=== PATIENT | female | born 1965 | race Caucasian/White ===

== ENCOUNTER 2025-01-12 12:43 | Outpatient (CLI) | payer OTHER, SELFPAY ==
--- NOTE | ~2025-01-12 | MMUS_ITS ---
PROCEDURE: MM DIAGNOSTIC ESTER LT W TYESHA AND US BREAST LT LIMITED. INDICATION: 57-year old female; with palpable lump in her left axilla x2 months. History of 100 pound weight loss in the past year. COMPARISON: 05/23/2024 through 01/11/2022 TECHNIQUE: Digital breast tomosynthesis CC and MLO views of LEFT breast were obtained with computer-a ided detection to assist in interpretation of the study. FINDINGS: There are scattered areas of fibroglandular density. There are no suspicious masses, calcifications, architectural distortion or any other abnormality in LEFT breast. LEFT BREAST ULTRASOUND FINDINGS: Targeted sonographic evaluation of the palpable area in the left axilla was completed. There is no so nographic abnormality that correlates to the area of palpable lump identified by the patient. . Benig n appearing lymph nodes with predominantly fatty emerson are seen. IMPRESSION: 1. NO MAMMOGRAPHIC OR SONOGRAPHIC ABNORMALITY CORRELATE TO THE PALPABLE LUMP IN THE LEFT AXILLA. FURT HER EVALUATION OF PATIENT'S PALPABLE LUMP SHOULD BE BASED ON CLINICAL IMPRESSION. FOLLOW-UP CLINICALLY WARRANTED. 2. NO MAMMOGRAPHIC EVIDENCE OF MALIGNANCY IN LEFT BREAST. BI-RADS 1, NEGATIVE Reviewed, dictated and finalized at location B. IMPRESSION: 1. NO MAMMOGRAPHIC OR SONOGRAPHIC ABNORMALITY CORRELATE TO THE PALPABLE LUMP IN THE LEFT AXILLA. FURTHER EVALUATION OF PATIENT'S PALPABLE LUMP SHOULD BE BASED ON CLINICAL IMPRESSION. FOLLOW-UP CLINICALLY WARRANTED. 2. NO MAMMOGRAPHIC EVIDENCE OF MALIGNANCY IN LEFT BREAST. BI-RADS 1, NEGATIVE
--- OUTSIDE RECORDS SUMMARY | 2025-01-12 12:47 | XMS_ITS | Continuity of Care Document ---
Author Organization [facility] Address [address] [place] [address] Phone Care Team Providers Care Order Selector Name Role Phone Ilya Jiang MD Unavailable Unavailable Procedures Procedure Date New (Level 4) OFFICE/OUTPATIENT VISIT Advance Directives Directive Yes / No Effective Date File Name No Information Encounters Encounter Description Practice Location Reason(s) For Visit Diagnoses Date Provider Providers Copied on Encounter New (Level 4) OFFICE/OUTPA TIENT VISIT [facility], [address], [place], [place], [id number], [place] tel:[phone] [facility] [place]chief complaint) Body mass index (BMI) 45.0-49.9, adultUrticariaOt her adverse food reaction, initial encounterChronic rhinitis 2 Deidre Caraballo. [address] [facility] [address] [facility], [place], [address], [place]. tel:[phone] Referring Provider: Fabiola Altman, [address], [place], [address]. tel:[phone] Family History Family Member Type Diagnosis Age At Onset No Information Payers Payer name Insurance type Covered green party ID Authoriza tion(s) [facility] Choice Plus CI [id number] Social History Type Description Quantity Date Captured Comments Alcohol Use Details Unknown Caffeine Use Details Unknown Tobacco Use Status No Information Smoking Status No Information Christian-[birth year]20[birth year] Sex Female Vital Signs Date / Time: Height Weight BMI Pulse Rate Blood Pressure Temperature Respiratory Rate Body Surface Area Head Circumference Head Circ. Percentile Wt./Eber. Percentile BMI percentile Pulse Ox Inhaled Ox 2:58 PM 65.50 in 128.367 kg (283.00 lbs) 46.3 8 kg/m eter (2) 78 /min 138/74 mm[Hg] 97.70 F 2.44 meter(2) 98 % Chief Complaint And Reason For Visit From encounter dated '02/08/2022 15:00'. hives (chief complaint). Description: Stephy developed hives on 01/17/22. They were all over her body, except between the knees and ankles. She had lesions on her feet, face, body, and arms. The hives persisted over about 2 days. She started prednisone on 01/18/22. The rash was mostly resolved byabout 01/22/22. She reports generalized puffiness without specific angioedema of the fingers and lips. She denies dyspnea, vomiting, or abdominal pain with the episode.She reports eating Maltese food for dinner the night the episode started. She reports ankle pruritus immediately after eating the meal. She ate crab rangoon (imitation crab), beef, mushrooms, broccoli with rice and a spring roll. During the episode, she was on loratadine (claritin) 10 mg daily, montelukast (singulair) 10 mg daily.She completed a course of oral steroids after 5 or 6 days. She did not otherwise treat the rash.Individual lesions lasted > 24 hours, but resolution did not result in ecchymosis or hyperpigmen tation except as a result of repetitive scratching. No fevers, chills, or night sweats. She does not routinely use NSAIDs. Pressure and vibration have not been triggers for hives. She has not noticedtemperature (hot or cold) as triggers for her hives.She has an EpiPen that was prescribed because of this event.She has GERD on omeprazole 20 mg BID. This does control her symptoms.RhinitisThe patient has a history of perennial rhinitis without seasonal worsening. The symptoms include rhinorrhea (ant/post), and sneezing w/ ocular pruritus and tearing. Currently, the patient is on loratadine (claritin) 10 mg daily (last this AM) and montelukast (singulair) 10 mg daily, which does provide adequate relief. She does not like the feeling of using a nasal spray. The patient does not have a history of frequent sinus infections.Adverse Food ReactionLobster, Crab - She reports pruritus after eating these foods. Almost immediately after eating one of the above, her body feels warm descending down her body associated with pruritus. She does not recall ever getting hives or swelling. No vomiting, li ghtheadedness, dizziness, or dyspnea after eating these foods. No ED visits because of a reaction.She tolerates shrimp. She does not routinely eat molluscs.She is currently undergoing cardiac evaluation, with a TTE and stress test scheduled soon. She is on metoprolol. 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 They were all over her body, except between the knees and ankles. She had lesions on her feet, face, body, and arms. The hives persisted over about 2 days. She started prednisone on 01/18/22. The rash was mostly resolved by about 01/22/22. She reports generalized puffiness without specific angioedema of the fingers and lips. She denies dyspnea, vomiting, or abdominal pain with the episode.She reports eating Maltese food for dinner the night the episode started. She reports ankle pruritus immediately after eating the meal. She ate crab rangoon (imitation crab), beef, mushrooms, broccoli with rice and a spring roll. During the episode, she was on loratadine (claritin) 10 mg daily, montelukast (singulair) 10 mg daily. She completed a course of oral steroids after 5 or 6 days. She did not otherwise treat the rash.Individual lesions lasted > 24 hours, but resolution did not result in ecchymosis or hyperpigmentation except as a result of repetitive scratching. No fevers, chills, or night sweats. She does not routinely use NSAIDs. Pressure and vibration have not been triggers for hives. She has not noticed temperature (hot or cold) as triggers for her hives.She has an EpiPen that was prescribed because of this event.She has GERD on omeprazole 20 mg BID. This does control her symptoms.RhinitisThe patient has a history of perennial rhinitis without seasonal worsening. The symptoms include rhinorrhea (ant/post), and sneezing w/ ocular pruritus and tearing. Currently, the patient is on loratadine (claritin) 10 mg daily (last this AM) and montelukast (singulair) 10 mg daily, which does provide adequate relief. She does not like the feeling of using a nasal spray. The patient does not have a history of frequent sinus infections.Adverse Food ReactionLobster, Crab - She reports pruritus after eating these foods. Almost immediately after eating one of the above, her body feels warm descending down her body associated with pruritus. She does not recall ever getting hives or swelling. No vomiting, lightheadedness, dizziness, or dyspnea after eating these foods. No ED visits because of a reaction.She tolerates shrimp. She does not routinely eat molluscs.She is currently undergoing cardiac evaluation, with a TTE and stress test scheduled soon. She is on metoprolol. 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 Environmental HistoryLives in a house w/ central air/forced heat, w/o evidence of mold/water damageFlooring in Bedroom: carpetPets: dog x 2DataI reviewed outside records available in the EMR Functional Status Date Functional Assessmen t No Information Instructions Date Instruction Additional Infor mation Giving encouragement to exercise Related to Body mass index [BMI] 45.0-49.9, adult Assessments Type Assessment Date assessment Body mass index (BMI) 45.0-49.9, adult assessment Urticaria assessment Other adverse food reaction, ini tial encounter assessment Chronic rhinitis Patient Care Teams Name Effective Dates (start - stop) Status Members No Information
--- OUTSIDE RECORDS SUMMARY | 2025-01-12 12:48 | XMS_ITS | Referral Summary ---
Author Organization [facility] Address [address] [place] [address] Care Team Providers Care Delivery Merchandiser Name Role Phone Fabiola Dickson MD Primary Care Provider [phone] Encounters Date Type Department Care Team Description 01/05/[address] [place] [address] Fabiola Dickson MD 12/23/2024 3:00 PM CDT Office Visit [address] [place] [address] Yanni Hubbard, [place] Mass of left axilla (Primary Dx) from Last 3 Months Allergies Active Allergy Reactions Criticality Noted Date Comments Erythromycin Itching,Rash,Hives Medium 05/12/2014 Rash Nifedipine Headache,Other (See comments) Low 05/29/2020 Says her head felt like it would explode Propoxyphene Stomach upset,Hives,Itching Medium 05/12/2014 Stomach/GI Upset Propoxyphene-Acetaminop hen Itching Low Medications aspirin 81 mg chewable tablet Take 1 tablet (81 mg total) by mouth daily Active loratadine 10 mg capsule Take 1 tablet by mouth daily Active TURMERIC ORAL Take by mouth Ac tive cinnamon bark 500 mg capsule Take 1 capsule (500 mg total) by mouth daily Active omeprazole (PriLOSEC) 20 mg capsuleIndications:Yaya roesophageal reflux disease without esophagitis Take 1 capsule (20 mg total) by mouth 2 (two) times a day 180 capsule 1 022 Active Additional Information Patient not taking.Reported on 07/30/2024 montelukast (SINGULAIR) 10 mg tabletIndications:Cough Take 1 tablet (10 mg total) by mouth nightly 30 tablet 5 023 Active simvastatin (ZOCOR) 20 mg tabletIndications:Pure hypercholesterolemia TAKE 1 TABLET(20 MG) BY MOUTH DAILY 90 tablet 1 024 Active metoprolol XL (TOPROL-XL) 50 mg extended release tabletIndications:Uncon trolled hypertension Take 1 tablet (50 mg total) by mouth 2 (two) times a day 180 tablet 024 Active hydroCHLOROthiazide (HYDRODIURIL) 25 mg tablet TAKE 1 TABLET(25 MG) BY MOUTH DAILY 100 tablet 1 024 Active Mounjaro 7.5 mg/0.5 mL pen injectorIndications:Typ e 2 diabetes mellitus without complication, without long-term current use of insulin (HCC) ADMINISTER 7.5 MG UNDER THE SKIN EVERY 7 DAYS 2 mL 3 024 Active EPINEPHrine (Auvi-Q) 0.3 mg/0.3 mL auto-injection syringeIndications:Anap hylaxis Inject into the muscle as directed. Call 911 after use. 2 each 1 025 Active valsartan (DIOVAN) 80 mg tabletIndications:Uncon trolled hypertension TAKE 1 TABLET(80 MG) BY MOUTH DAILY 100 tablet 025 Active ergocalciferol (VITAMIN D) 50,000 unit capsuleIndications:Seema min D deficiency Take 1 capsule (50,000 Units total) by mouth once a week 4 capsule 1 025 Active ergocalciferol (VITAMIN D) 50,000 unit capsuleIndications:Seema min D deficiency TAKE 1 CAPSULE BY MOUTH 1 TIME A WEEK 4 capsule 5 024 2024 Disconti melody(Trisho rder) Active Problems Problem Noted Date Diagnosed Date Hypertension associated with diabetes 07/30/2024 Assessment & Plan (08/10/2024 3:12 AM DIVIDEND CLERK): Chronic Stable Cont meds Goal: SBP<140, DBP<90 Type 2 diabetes mellitus with hyperlipidemia Left foot pain 01/17/2023 Assessment & Plan (01/25/2023 7:05 AM CDT): New Refer to podiatry Order mobic Morbid obesity with BMI of 45.0-49.9, adult 06/0 03/2023 Assessment & Plan (01/25/2023 7:04 AM CDT): BMI Follow-up includes: nutrition counseling and education provided. BMI 45.0-49.9, adult 06/14/2022 Assessment & Plan (06/14/2022 9:19 AM CDT): BMI Follow-up includes: nutrition counseling and exercise counseling Change ozempic to mounjara. Need for vaccination 06/14/2022 Closed avulsion fracture of metatarsal bone of r ight foot 06/14/2022 Assessment & Plan (06/22/2022 4:41 AM DIVIDEND CLERK): Cleared for surgery Metabolic syndrome 06/14/2022 PSVT (paroxysmal supraventricular tachycardia) 0 03/22/2022 Assessment & Plan (09/20/2022 4:39 PM DIVIDEND CLERK): No significant palpitations. Continue the beta-isidoro. Advised her to contact me if he has any palpitations. As she is stable I will see her in 1 year. 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 television agent Order epipen because of h/o multiple food allergies Chest pressure 01/18/2022 Palpitations 01/18/2022 Abnormal EKG 01/18/2022 Gastroesophageal reflux disease without esophagi tis 11/23/2021 Assessment & Plan (12/12/2021 7:47 PM CDT): Stable Cont omeprazole Precordial pain 11/23/2021 Assessment & Plan (12/12/2021 7:45 PM CDT): New Refer to cardiology for cardiac testing Vitamin D deficiency 07/01/2021 Assessment & Plan (08/13/2023 7:50 AM DIVIDEND CLERK): Stable Cont vitamin d supplement Assessment & Plan (06/14/2022 9:20 AM CDT): Stable Cont vitamin d supplement Assessment & Plan (03/30/2022 12:11 PM CDT): Stable Cont vitamin d supplement Assessment & Plan (12/12/2021 7:47 PM CDT): Stable Cont vitamin d supplement Assessment & Plan (07/10/2021 9:13 AM DIVIDEND CLERK): New Order vitamin d high dose supplement Encounter for screening colonoscopy 11/30/2020 Uncontrolled hypertension 11/19/2020 Assessment & Plan (12/12/2021 7:46 PM CDT): New Start diovan Cont hctz, toprol, Goal: SBP<140, DBP<90 Assessment & Plan (12/12/2020 6:03 AM CDT): Uncontrolled Dc bystolic Start toprol BID Cont HCTZ Assessment & Plan (11/30/2020 7:20 PM CDT): Fluctuating Increase toprol xl to 50mg daily Cont edarbyclor 40/25 mg qd Periumbilical abdominal pain 11/19/2020 Assessment & Plan (11/19/2020 10:53 AM CDT): Worsening Refer to dr. [place] Order CT abd/pelvis Constipation 11/19/2020 Assessment & Plan (11/30/2020 7:20 PM CDT): New Take OTC miralax or colace Raynaud's phenomenon without gangrene 09/26/2019 Assessment & Plan (09/27/2019 3:53 PM DIVIDEND CLERK): New Start nifedipine Cyanosis of tip of finger 08/24/2019 Assessment & Plan (09/28/2019 11:09 AM DIVIDEND CLERK): Order labs Order arterial dopplers Left leg pain 08/24/2019 Assessment & Plan (09/28/2019 11:10 AM DIVIDEND CLERK): Order xray Order labs Refer to PT Left leg numbness 08/24/2019 Assessment & Plan (09/28/2019 11:10 AM DIVIDEND CLERK): Order xray Order labs Refer to PT Cough 02/07/2019 Assessment & Plan (06/18/2020 4:44 PM DIVIDEND CLERK): Stable Cont singulair Assessment & Plan (09/27/2019 3:52 PM DIVIDEND CLERK): Possible secondary to Brandon inhibitor. See if resolves with stopping Brandon inhibitor Assessment & Plan (02/24/2019 1:51 PM CDT): Likely secondary to sinus drainage Start rosanna avilae Screening for breast cancer 02/07/2019 Morbid obesity with BMI of 40.0-44.9, adult 01/10 Assessment & Plan (06/14/2022 9:19 AM CDT): BMI Follow-up includes: nutrition counseling and exercise counseling Change ozempic to mounjara. Assessment & Plan (03/30/2022 12:13 PM CDT): BMI Follow-up includes: nutrition counseling and exercise counseling. Assessment & Plan (04/13/2021 10:40 AM CDT): BMI Follow-up includes: nutrition counseling and exercise counseling. Cont ozempic Assessment & Plan (09/17/2020 3:07 PM DIVIDEND CLERK): Stable Work on diet and exercise Assessment & Plan (09/01/2020 6:11 AM DIVIDEND CLERK): BMI Follow-up includes: nutrition counseling and exercise counseling. 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 0 09/27/2016 Type 2 diabetes mellitus 08/09/2016 Assessment & Plan (08/13/2023 7:51 AM DIVIDEND CLERK): Chronic Stable Cont mounjara to 5mg weekly Goal hgba1c<6.5 Assessment & Plan (01/25/2023 7:05 AM CDT): Chronic Increase mounjara to 5mg weekly Goal hgba1c<6.5 Assessment & Plan (06/14/2022 9:18 AM CDT): Stable Change ozempic to mounjara low dose Goal hgba1c<6.5 Assessment & Plan (03/30/2022 12:11 PM CDT): Stable Cont ozempic Goal hgba1c<6.5 Assessment & Plan (12/12/2021 7:46 PM CDT): Stable Cont ozempic Goal hgba1c<6.5 Assessment & Plan (07/10/2021 9:13 AM DIVIDEND CLERK): Stable Cont ozempic Goal hgba1c<6.5 Assessment & Plan (04/13/2021 10:39 AM CDT): Stable Cont ozempic Goal hgba1c<6.5 Assessment & Plan (12/12/2020 6:03 AM CDT): Stable Cont ozempic Assessment & Plan (11/30/2020 7:21 PM CDT): Stable Cont ozempic Assessment & Plan (09/17/2020 3:08 PM DIVIDEND CLERK): Stable Cont ozempic Assessment & Plan (06/18/2020 4:45 PM DIVIDEND CLERK): Stable Cont to control with diet Assessment & Plan (05/29/2020 7:43 AM CDT): Stable Cont to control with diet Assessment & Plan (09/28/2019 11:09 AM DIVIDEND CLERK): Stable Cont to control with diet Assessment & Plan (09/27/2019 3:53 PM DIVIDEND CLERK): Stable Cont to control with diet Assessment & Plan (02/24/2019 1:50 PM CDT): Stable Cont to control with diet Hyperlipidemia 07/18/2016 Assessment & Plan (08/13/2023 7:50 AM DIVIDEND CLERK): Chronic Is Stable Cont zocor Goal: TC<200, LDL<100, TG<150 Assessment & Plan (01/25/2023 7:04 AM CDT): Chronic Stable Cont zocor Goal: TC<200, LDL<100, TG<150 Assessment & Plan (09/20/2022 4:40 PM DIVIDEND CLERK): Recent lipid panel looks good. She is going to have labs done in January. I will add lipids to those labs. By based on that I will make further recommendations. Continue simvastatin and the heart healthy diet. Assessment & Plan (06/14/2022 9:19 AM CDT): Stable Cont zocor Goal: TC<200, LDL<100, TG<150 Assessment & Plan (03/30/2022 12:11 PM CDT): Stable Cont zocor Goal: TC<200, LDL<100, TG<150 Assessment & Plan (12/12/2021 7:44 PM CDT): Stable Cont zocor Goal: TC<200, LDL<100, TG<150 Assessment & Plan (07/10/2021 9:14 AM DIVIDEND CLERK): Stable Cont zocor May add Novelty-s to help reduce LDL Goal: TC<200, LDL<100, TG<150 Assessment & Plan (04/13/2021 10:40 AM CDT): Stable Cont zocor Assessment & Plan (12/12/2020 6:03 AM CDT): Stable Cont zocor Assessment & Plan (11/30/2020 7:21 PM CDT): Stable Cont zocor Assessment & Plan (09/17/2020 3:09 PM DIVIDEND CLERK): Stable Cont zocor Assessment & Plan (09/01/2020 6:11 AM DIVIDEND CLERK): Stable Cont zocor Assessment & Plan (06/18/2020 4:45 PM DIVIDEND CLERK): Stable Cont zocor Assessment & Plan (05/29/2020 7:43 AM CDT): Stable Cont zocor Assessment & Plan (09/28/2019 11:09 AM DIVIDEND CLERK): Stable Cont zocor Assessment & Plan (09/27/2019 3:53 PM DIVIDEND CLERK): Stable Cont zocor Assessment & Plan (02/24/2019 1:50 PM CDT): Stable Cont zocor Hypertension 07/18/2016 Assessment & Plan (08/13/2023 7:50 AM DIVIDEND CLERK): Chronic Is Stable Cont hctz, toprol Goal SBP<140, DBP<90 Assessment & Plan (01/25/2023 7:04 AM CDT): Chronic Stable Cont hctz, toprol Goal SBP<140, DBP<90 Assessment & Plan (09/20/2022 4:39 PM DIVIDEND CLERK): Blood pressure is well controlled. Continue metoprolol, hydrochlorothiazide and valsartan. Discussed low-salt diet. Assessment & Plan (06/14/2022 9:19 AM CDT): Stable Cont hctz, toprol Goal SBP<140, DBP<90 Assessment & Plan (03/30/2022 12:10 PM CDT): Stable Cont hctz, toprol Goal SBP<140, DBP<90 Assessment & Plan (07/01/2021 8:19 PM DIVIDEND CLERK): Stable Cont hctz, toprol Goal SBP<140, DBP<90 Assessment & Plan (04/13/2021 10:40 AM CDT): Stable Cont hctz, toprol Goal SBP<140, DBP<90 Assessment & Plan (09/17/2020 9:12 AM DIVIDEND CLERK): Borderline high Increase bystolic 10mg BID Cont hctz 25mg daily Assessment & Plan (08/27/2020 11:08 AM DIVIDEND CLERK): Still DBP uncontrolled Add hctz 12.5mg daily Cont bystolic Assessment & Plan (06/18/2020 4:44 PM DIVIDEND CLERK): Improving, but still DBP increased Increase bystolic to 10mg daily Assessment & Plan (05/29/2020 7:42 AM CDT): Controlled but would like to change the prinzide because of the water pill worsening urinary incontinence Stop prinzide Start bystolic 5 mg daily Assessment & Plan (09/28/2019 11:08 AM DIVIDEND CLERK): Stable Cont prinzide Assessment & Plan (09/27/2019 3:53 PM DIVIDEND CLERK): Stop prinzide. Start nifedipine and hctz Assessment & Plan (02/24/2019 1:50 PM CDT): Stable Cont zide Immunizations Immunization Administration Dates Next Due Flucelvax Influenza Quad 05/24/2017 Influenza, Quadrivalent, Spl it, Intramuscular 07/17/2016 Influenza, Quadrivalent, Spl it, Preservative Free, Intramuscular 06/14/2022,05/01/2020,05/10/2019,06/03,05/13/2014,05/13/2014 Influenza, Unspecified 05/12/2023(Deferr ed: Patient Refused),05/05/2021,05/12/2020 Pfizer SARS-CoV-2 Monovalent Vaccination (12+ Yrs) PURPLE 05/05/2021,08/22/2020,08/01/2020 Social History Tobacco Use Types Packs/Day Years Used Date Smoking Tobacco: Never Cigarettes Smokeless Tobacco: Never Tobacco Cessation:Counseling Given: Not Answered Alcohol Use Standard Drinks/Week Comments Never 0 (1 standard drink = 0.6 oz pur e alcohol) AUDIT-C Answer Date Recorded Q1: How often do you have a drink containing alcohol? Never 07/30/2024 Q2: How many drinks containi ng alcohol do you have on a typical day when you are drinking? Patient does not drink Frequency of Binge Drinking Not on file 07/12 PHQ-2 Answer Date Recorded PHQ-2 Total Score (If total score is 3 or more points, staff should administer the PHQ-9) 0 01/28/2024 Personal Safety Answer Date Recorded Have you ever been in or are you currently in a harmful physical or emotional relationship or is someone making you feel afraid or unsafe? Denies 11/01/2022 Comments No Sex and Gender Information Value Date Recorded Sex Assigned at Not on file Legal Sex Female 12:02 PM DIVIDEND CLERK Gender Identity Female 05/21/2020 3:19 PM CDT Sexual Orientation Straight 04/04/2021 7: 56 PM CDT Last Filed Vital Signs Vital Sign Reading Time Taken Comments Blood Pressure 120/68 12/23/2024 2:46 PM CDT Pulse 57 12/23/2024 2:46 PM CDT Temperature 36.4 C (97.6 F) 07/30/2024 8:49 AM DIVIDEND CLERK Respiratory Rate 18 12/23/2024 2:46 PM CDT Oxygen Saturation 98% 12/23/2024 2:46 PM CDT Inhaled Oxygen Concentration - - Weight 99.6 kg (219 lb 9.6 oz) 12/23/2024 2:46 P M CDT Height 165.1 cm (5' 5) 12/23/2024 2:46 PM CDT Body Mass Index 36.54 12/23/2024 2:46 PM CDT Plan of Treatment Not on file Procedures Procedure Name Priority Date/Time Associated Diagnosis Comments EGFR Routine 07/30/2024 6:16 AM DIVIDEND CLERK Type 2 diabetes mellitus without complication, without long-term current use of insulin (HCC) Pure hypercholesterole constance Primary hypertension Vitamin D deficiency Metabolic syndrome HEMOGLOBIN A1C Routine 07/30/2024 6:16 AM DIVIDEND CLERK Type 2 diabetes mellitus without complication, without long-term current use of insulin (HCC) Pure hypercholesterole constance Primary hypertension Vitamin D deficiency Metabolic syndrome LIPID PANEL Routine 07/30/2024 6:16 AM DIVIDEND CLERK Type 2 diabetes mellitus without complication, without long-term current use of insulin (HCC) Pure hypercholesterole constance Primary hypertension Vitamin D deficiency Metabolic syndrome ALBUMIN CREATININE RATIO, URINE Routine 07/30/2024 6:13 AM DIVIDEND CLERK Type 2 diabetes mellitus without complication, without long-term current use of insulin (HCC) Pure hypercholesterole constance Primary hypertension Vitamin D deficiency Metabolic syndrome SCREENING MAMMOGRAM BILATERAL W CARTER Schedule Routine, Read Routine (OP Routine) 05/23/2024 10:42 AM CDT Screening mammogram, encounter for DIABETIC EYE EXAM Routine 02/10/2024 COLONOSCOPY Routine 01/25/2021 from Last 3 Months or Most Recently Relevant to Health Maintenance Results * eGFR (07/30/2024 6:16 AM DIVIDEND CLERK) eGFR >90 >=60 mL/min/1. 73 m2 Comment: Interpretive Data Reference Interval Normal >/= 90 mL/min/1.73m2 Mildly decreased* 60 - 89 mL/min/1.73m2 Mildly to moderately decreased 45 - 59 mL/min/1.73m2 Moderately to severely decreased 30 - 44 mL/min/1.73m2 Severely decreased 15 - 29 mL/min/1.73m2 Kidney Failure < 15 mL/min/1.73m2 *Relative to young adult level Estimated glomerular filtration rate is determined by the 2020 CKD-EPI equation recommended by the National Kidney Foundation (A Unifying Approach to GFR Estimation: Recommendations of the NKF-ASK Task Force on Reassessing the Inclusion of Race in Diagnosing Kidney Disease, JASN 202). The CKD-EPI equation should not be used for patients with unstable renal function and has not been validated in children and those over 70. Current interpretive data was last reviewed 2021. Blood 07/30/2024 6:16 AM DIVIDEND CLERK 07/30/2024 7:07 AM DIVIDEND CLERK Fabiola Dickson MD LAB BLOOD ORDERABLES Susan l Result Performing Organization Address [facility] Co de Phone Number [address] [employer] [place] [address] * Hemoglobin A1c (07/30/2024 6:16 AM DIVIDEND CLERK) [facility] Hgb A1C 5.5 4.0 - 5.6 % Estimated Average Glucose 111 mg/dL [facility] Comment: The ADA recommends reporting an estimated Average Glucose (eAG) with all Hemoglobin A1c results using the equation derived from a study of 507 normal and diabetic adults. Minority populations were underrepresented and children were not included. (Diabetes Care 31:1476-6359, 2008). The eAG is not equivalent to a fasting glucose. Blood 07/30/2024 6:16 AM DIVIDEND CLERK 07/30/2024 7:07 AM DIVIDEND CLERK Fabiola Dickson MD LAB BLOOD ORDERABLES Susan l Result Performing Organization Address City/[facility]/ZIP Co de Phone Number [address] [employer] [place] [address] * Lipid panel (07/30/2024 6:16 AM DIVIDEND CLERK) Cholesterol 163 30 - 199 mg/dL Comment: Interpretive Data Ages < or = 19 years Acceptable: <170 mg/dL Borderline high: 170-199 mg/dL High: >or= 200 mg/dL Ages > or = 20 years Desirable: <200 mg/dL Borderline high: 200-239 mg/dL High: >or= 240 mg/dL Literature References: 1. Expert Panel on Integrated Guidelines for Cardiovascular Health and Risk Reduction in Children and Adolescents. Pediatrics 2011;128:S213 2. NCEP Expert Panel. Circulation 2004;110:227 Current Interpretive Data was last revised on 2018. Triglycerides 54 <=149 mg/dL [facility] Comment: Interpretive Data Ages < or = 9 years Acceptable: <75 mg/dL Borderline high: 75-99 mg/dL High: >or= 100 mg/dL Ages 10 to 20 years Acceptable: <90 mg/dL Borderline high: 90-129 mg/dL High: >or= 130 mg/dL Ages > or = 20 years Desirable: <150 mg/dL Borderline high: 150-199 mg/dL High: 200-499 mg/dL Very high: >or= 499 mg/dL Literature References: 1. Expert Panel on Integrated Guidelines for Cardiovascular Health and Risk Reduction in Children and Adolescents. Pediatrics 2011;128:S213 2. NCEP Expert Panel. Circulation 2004;110:227 Current Interpretive Data was last revised on 2018. HDL 64 >=40 mg/dL [facility] Comment: Interpretive Data Ages < or = 19 years Acceptable: >45 mg/dL Borderline low: 40-45 mg/dL Low: <40 mg/dL Ages > or = 20 years Desirable: >or= 60 mg/dL Low: <40 mg/dL Literature References: 1. Expert Panel on Integrated Guidelines for Cardiovascular Health and Risk Reduction in Children and Adolescents. Pediatrics 2011;128:S213 2. NCEP Expert Panel. Circulation 2004;110:227 Current Interpretive Data was last revised on 2018. LDL, calculated 88 <=129 mg/dL [facility] Comment: Interpretive Data Ages < or = 19 years Acceptable: <110 mg/dL Borderline high: 110-129 mg/dL High: >or= 130 mg/dL Ages > or = 20 years Optimal: <100 mg/dL Near optimal: 100-129 mg/dL Borderline high: 130-159 mg/dL High: >160 mg/dL Calculated using the Gerardo LDL-C estimating equation. This equation was implemented on 2024. Prior to this date LDL-C was estimated using the Friedewald equation. Literature References: 1. Expert Panel on Integrated Guidelines for Cardiovascular Health and Risk Reduction in Children and Adolescents. Pediatrics 2011;128:S213 2. NCEP Expert Panel. Circulation 2004;110:227 3. Gerardo Johnston et al. SANTANA Cardiol. 2020 December 10;5(5):540-548. doi: 10.1001/jamacardio.2020.0013 Current Interpretive Data was last revised on 2024. Non-HDL Cholesterol 99 mg/dL [facility] Comment: Interpretive Data Ages < or = 19 years Acceptable: <120 mg/dL Borderline high: 120-144 mg/dL High: >145 mg/dL Ages > or = 20 years When triglycerides are >200 mg/dL, Non-HDL cholesterol is a secondary target of therapy with treatment goals that are 30 mg/dL greater than the LDL cholesterol target. Literature References: 1. Expert Panel on Integrated Guidelines for Cardiovascular Health and Risk Reduction in Children and Adolescents. Pediatrics 2011;128:S213 2. NCEP Expert Panel. Circulation 2004;110:227 Current Interpretive Data was last revised on 2018. Chol/HDL ratio 3 [facility] Blood 07/30/2024 6:16 AM DIVIDEND CLERK 07/30/2024 7:07 AM DIVIDEND CLERK Fabiola Dickson MD LAB BLOOD ORDERABLES Susan l Result [facility] [id number] [facility] [place], [place] [id number] * Albumin Creatinine Ratio, Urine (07/30/2024 6:13 AM DIVIDEND CLERK) Albumin Ur 25.1 mg/L Comment: Interpretive Data No reference range established. Current interpretive data was last revised 2018. Creatinine Ur 182.0 mg/dL [facility] Comment: Interpretive Data No reference range established. Current interpretive data was last revised 2018. Albumin Creatinine Ratio, Ur 14 1 - 29 mg/g [facility] Urine 07/30/2024 6:13 AM DIVIDEND CLERK 07/30/2024 7:08 AM DIVIDEND CLERK us Fabiola Dickson MD LAB URINE ORDERABLES Susan eubanks Result [facility] [address] [facility] [place] [address] * Screening Mammogram Bilateral W Carter (05/23/2024 10:42 AM CDT) Anatomical Region Laterality Modality Breast Bilateral Mammography Impressions 05/25/2024 9:25 AM CDT BI-RADS ATLAS category (overall): 1 - Negative There is no mammographic evidence of malignancy. A 1 year screening mammogram is recommended. The patient has been or will be contacted. We recommend annual screening mammography for women at average risk of breast cancer beginning at age 40, based on guidelines of the [employer] [place] [employer] (ACR Practice Parameter for the Performance of Screening and Diagnostic Mammography) and [employer] [place] [employer]. For women with and elevated risk of breast cancer, please refer to the ACR Practice Parameter for specific screening recommendations. The patient will be entered into a reminder system with a target due date of 1 year for her next screening exam. Narrative 05/25/2024 9:25 AM CDT Screening Mammogram Bilateral W Carter: 05/23/24 The study was acquired using full field digital technology and interpreted from soft copy. 2D digital mammographic views, as well as 3D digital tomosynthesis were performed in the CC and MLO projections. CLINICAL: Screening mammogram, encounter for. No relevant medical history has been documented for this patient. History of breast cancer in Neg Hx. COMPARISONS: 07/30/2023 Diagnostic Mammogram Left W Carter 01/24/2023 US Breast Left Limited 01/24/2023 Diagnostic Mammogram Left W Carter 01/19/2023 Screening Mammogram Bilateral W Carter 01/11/2022 Screening Mammogram Bilateral W Carter 09/03/2020 Screening Mammogram Bilateral W Carter 03/07/2019 SCREENING MAMMOGRAM BILATERAL W CARTER 03/11/2015 US Breast Left Complete 03/11/2015 Diagnostic Mammogram Bilateral W Carter BREAST TISSUE: There are scattered areas of fibroglandular density. FINDINGS: There is no new suspicious finding in either breast on mammogram. 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
--- OUTSIDE RECORDS SUMMARY | 2025-01-12 12:48 | XMS_ITS | Clinical Summary ---
Author Organization [facility] Address [address] [place] [address] Care Team Providers Care Landscaping Supervisor Name Role Phone Fabiola Dickson MD Primary Care Provider [phone] Allergies Active Allergy Reactions Criticality Noted Date [...] WEEK 4 capsule 5 024 2024 Disconti nued(Reo rder) Active Problems Problem Noted Date Diagnosed Date Hypertension associated with diabetes 07/30/2024 Assessment & Plan (08/10/2024 3:12 AM DIE CASTER): Chronic Stable Cont meds Goal: SBP<140, DBP<90 Type 2 diabetes mellitus with hyperlipidemia Left foot pain 01/17/2023 Assessment & Plan (01/25/2023 7:05 AM CDT): New Refer to podiatry Order mobic Morbid obesity with BMI of 45.0-49.9, adult 03/2023 Assessment & Plan (01/25/2023 7:04 AM CDT): BMI Follow-up includes: nutrition counseling and education provided. BMI 45.0-49.9, adult 06/14/2022 Assessment & Plan (06/14/2022 9:19 AM CDT): BMI Follow-up includes: nutrition counseling and exercise counseling Change ozempic to mounjara. Need for vaccination 06/14/2022 Closed avulsion fracture of metatarsal bone of r ight foot 06/14/2022 Assessment & Plan (06/22/2022 4:41 AM DIE CASTER): Cleared for surgery Metabolic syndrome 06/14/2022 PSVT (paroxysmal supraventricular tachycardia) 0 03/22/2022 Assessment & Plan (09/20/2022 4:39 PM DIE CASTER): No significant palpitations. Continue the beta-isidoro. Advised her to contact me if he has any palpitations. As she is stable I will see her in 1 year. 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 Order epipen because of h/o multiple food allergies Chest pressure 01/18/2022 Palpitations 01/18/2022 Abnormal EKG 01/18/2022 Gastroesophageal reflux disease without esophagi tis 11/23/2021 Assessment & Plan (12/12/2021 7:47 PM CDT): Stable Cont omeprazole Precordial pain 11/23/2021 Assessment & Plan (12/12/2021 7:45 PM CDT): New Refer to cardiology for cardiac testing Vitamin D deficiency 07/01/2021 Assessment & Plan (08/13/2023 7:50 AM DIE CASTER): Stable Cont vitamin d supplement Assessment & Plan (06/14/2022 9:20 AM CDT): Stable Cont vitamin d supplement Assessment & Plan (03/30/2022 12:11 PM CDT): Stable Cont vitamin d supplement Assessment & Plan (12/12/2021 7:47 PM CDT): Stable Cont vitamin d supplement Assessment & Plan (07/10/2021 9:13 AM DIE CASTER): New Order vitamin d high dose supplement [...] 09/26/2019 Assessment & Plan (09/27/2019 3:53 PM DIE CASTER): New Start nifedipine Cyanosis of tip of finger 08/24/2019 Assessment & Plan (09/28/2019 11:09 AM DIE CASTER): Order labs Order arterial dopplers Left leg pain 08/24/2019 Assessment & Plan (09/28/2019 11:10 AM DIE CASTER): Order xray Order labs Refer to PT Left leg numbness 08/24/2019 Assessment & Plan (09/28/2019 11:10 AM DIE CASTER): Order xray Order labs Refer to PT Cough 02/07/2019 Assessment & Plan (06/18/2020 4:44 PM DIE CASTER): Stable Cont singulair Assessment & Plan (09/27/2019 3:52 PM DIE CASTER): Possible secondary to Brandon inhibitor. See if resolves with stopping Brandon inhibitor Assessment & Plan (02/24/2019 1:51 PM CDT): Likely secondary to sinus drainage Start singulair, flonase Screening for breast cancer 02/07/2019 Morbid obesity [...] ozempic Assessment & Plan (09/17/2020 3:07 PM DIE CASTER): Stable Work on diet and exercise Assessment & Plan (09/01/2020 6:11 AM DIE CASTER): BMI Follow-up includes: nutrition counseling and exercise counseling. 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 0 09/27/2016 Type 2 diabetes mellitus 08/09/2016 Assessment & Plan (08/13/2023 7:51 AM DIE CASTER): Chronic Stable Cont mounjara to 5mg weekly [...] hgba1c<6.5 Assessment & Plan (07/10/2021 9:13 AM DIE CASTER): Stable Cont ozempic Goal hgba1c<6.5 Assessment & Plan (04/13/2021 10:39 AM CDT): Stable Cont ozempic Goal hgba1c<6.5 Assessment & Plan (12/12/2020 6:03 AM CDT): Stable Cont ozempic Assessment & Plan (11/30/2020 7:21 PM CDT): Stable Cont ozempic Assessment & Plan (09/17/2020 3:08 PM DIE CASTER): Stable Cont ozempic Assessment & Plan (06/18/2020 4:45 PM DIE CASTER): Stable Cont to control with diet Assessment & Plan (05/29/2020 7:43 AM CDT): Stable Cont to control with diet Assessment & Plan (09/28/2019 11:09 AM DIE CASTER): Stable Cont to control with diet Assessment & Plan (09/27/2019 3:53 PM DIE CASTER): Stable Cont to control with diet Assessment & Plan (02/24/2019 1:50 PM CDT): Stable Cont to control with diet Hyperlipidemia 07/18/2016 Assessment & Plan (08/13/2023 7:50 AM DIE CASTER): Chronic Is Stable Cont zocor Goal: TC<200, LDL<100, TG<150 Assessment & Plan (01/25/2023 7:04 AM CDT): Chronic Stable Cont zocor Goal: TC<200, LDL<100, TG<150 Assessment & Plan (09/20/2022 4:40 PM DIE CASTER): Recent lipid panel looks good. She is [...] TG<150 Assessment & Plan (07/10/2021 9:14 AM DIE CASTER): Stable Cont zocor May add [place]-s to help reduce LDL Goal: TC<200, LDL<100, TG<150 Assessment & Plan (04/13/2021 10:40 AM CDT): Stable Cont zocor Assessment & Plan (12/12/2020 6:03 AM CDT): Stable Cont zocor Assessment & Plan (11/30/2020 7:21 PM CDT): Stable Cont zocor Assessment & Plan (09/17/2020 3:09 PM DIE CASTER): Stable Cont zocor Assessment & Plan (09/01/2020 6:11 AM DIE CASTER): Stable Cont zocor Assessment & Plan (06/18/2020 4:45 PM DIE CASTER): Stable Cont zocor Assessment & Plan (05/29/2020 7:43 AM CDT): Stable Cont zocor Assessment & Plan (09/28/2019 11:09 AM DIE CASTER): Stable Cont zocor Assessment & Plan (09/27/2019 3:53 PM DIE CASTER): Stable Cont zocor Assessment & Plan (02/24/2019 1:50 PM CDT): Stable Cont zocor Hypertension 07/18/2016 Assessment & Plan (08/13/2023 7:50 AM DIE CASTER): Chronic Is Stable Cont hctz, toprol Goal SBP<140, DBP<90 Assessment & Plan (01/25/2023 7:04 AM CDT): Chronic Stable Cont hctz, toprol Goal SBP<140, DBP<90 Assessment & Plan (09/20/2022 4:39 PM DIE CASTER): Blood pressure is well controlled. Continue metoprolol, hydrochlorothiazide and valsartan. Discussed low-salt diet. Assessment & Plan (06/14/2022 9:19 AM CDT): Stable Cont hctz, toprol Goal SBP<140, DBP<90 Assessment & Plan (03/30/2022 12:10 PM CDT): Stable Cont hctz, toprol Goal SBP<140, DBP<90 Assessment & Plan (07/01/2021 8:19 PM DIE CASTER): Stable Cont hctz, toprol Goal SBP<140, DBP<90 Assessment & Plan (04/13/2021 10:40 AM CDT): Stable Cont hctz, toprol Goal SBP<140, DBP<90 Assessment & Plan (09/17/2020 9:12 AM DIE CASTER): Borderline high Increase bystolic 10mg BID Cont hctz 25mg daily Assessment & Plan (08/27/2020 11:08 AM DIE CASTER): Still DBP uncontrolled Add hctz 12.5mg daily Cont bystolic Assessment & Plan (06/18/2020 4:44 PM DIE CASTER): Improving, but still DBP increased Increase bystolic to 10mg daily Assessment & Plan (05/29/2020 7:42 AM CDT): Controlled but would like to change the prinzide because of the water pill worsening urinary incontinence Stop prinzide Start bystolic 5 mg daily Assessment & Plan (09/28/2019 11:08 AM DIE CASTER): Stable Cont prinzide Assessment & Plan (09/27/2019 3:53 PM DIE CASTER): Stop prinzide. Start nifedipine and hctz Assessment & Plan (02/24/2019 1:50 PM CDT): Stable Cont prinzide Encounters Date Type Department Care Team Description 01/05/[address] [place] [address] Fabiola Dickson MD 12/23/2024 3:00 PM CDT Office Visit [address] [place] [address] Yanni Hubbard, [place] Mass of left axilla (Primary Dx) from Last 3 Months Immunizations Immunization Administration Dates Next Due Flucelvax Influenza Quad 05/24/2017 Influenza, Quadrivalent, Spl it, Intramuscular 07/17/2016 Influenza, Quadrivalent, Spl it, Preservative Free, Intramuscular 06/14/2022,05/01/2020,05/10/2019,06/03,05/13/2014,05/13/2014 Influenza, Unspecified 05/12/2023(Deferr ed: Patient Refused),05/05/2021,05/12/2020 Pfizer SARS-CoV-2 Monovalent Vaccination (12+ Yrs) PURPLE 05/05/2021,08/22/2020,08/01/2020 Surgical History Surgery Date Site/Laterality Comments LA TOTAL ABDOMINAL HYSTERECT W/WO RMVL TUBE OVARY Hysterectomy - (Added by TW Conv) LA DELIVERY ONLY Section - (Added by TW Conv) x2 LA CHOLECYSTECTOMY Cholecystectomy - (Added by TW Conv) LA ARTHROSCOPY KNEE DIAGNOSTIC W/WO SYNOVIAL BX SPX Arthroscopy Knee - (Added by TW Conv) CATARACT EXTRACTION, BILATERAL , 03/02/2019 Bilateral CATARACT EXTRACTION 2019 SECTION 1986 & 1989 HYSTERECTOMY 1992 HERNIA REPAIR 2023 Medical History Medical History Date Comments Diabetes mellitus (HCC) Hypertension Hyperlipidemia GERD (gastroesophageal reflux disease) Obesity Family History Medical History Relation Name Comments No Known Problems Brother 1 No Known Problems Brother 2 No Known Problems Daughter 1 No Known Problems Daughter 2 Heart attack Father Roderick Hyperlipidemia Father Roderick Family histor y of hypercholesterolemia - (Added by TW Conv) Diabetes Father's Brother Richie Cancer Maternal Grandfather Luke Lung cancer Maternal Grandfather Luke Family history of lung cancer - (Added by TW Conv) Cancer Maternal Grandmother Lore Colon cancer Maternal Grandmother Lroe Colon c ancer - (Added by TW Conv) Hyperlipidemia Mother Yakelin Family histor y of hypercholesterolemia - (Added by TW Conv) Hypothyroidism Mother Yakelin Family histor y of hypothyroidism - (Added by TW Conv) Cancer Mother's Sister Marcela Heart attack Paternal Grandfather Fox Family history of myocardial infarction - (Added by TW Conv) Heart disease Paternal Grandfather Fox Heart disease Paternal Grandmother Marlene No Known Problems Sister 1 No Known Problems Sister 2 No Known Problems Son 1 No Known Problems Son 2 Breast cancer Neg Hx Relation Name Status Comments Brother 1 Alive Brother 2 Alive Daughter 1 Alive Daughter 2 Alive Father Roderick Alive Father's Brother Richie Maternal Grandfather Luke Maternal Grandmother Lore Mother Yakelin Alive Mother's Sister Marcela Paternal Grandfather Fox Paternal Grandmother Marlene Sister 1 Alive Sister 2 Alive Son 1 Alive Son 2 Alive Social History Tobacco Use Types Packs/Day Years [...] on file Legal Sex Female 12:02 PM DIE CASTER Gender Identity Female 05/21/2020 3:19 PM CDT Sexual Orientation Straight 04/04/2021 7: 56 PM CDT Obstetrics History Para Term AB IAB SAB Ectopic Multiple Livin g Live Births 5 4 4 Date Outcome GA Total Labor Labor/2nd/3rd Weight Sex Type Anes PTL Iram A1 A5 Name Clin Term Term Term Term Last Filed Vital Signs Vital Sign Reading Time Taken Comments Blood Pressure 120/68 12/23/2024 2:46 PM CDT Pulse 57 12/23/2024 2:46 PM CDT Temperature 36.4 C (97.6 F) 07/30/2024 8:49 AM DIE CASTER Respiratory Rate 18 12/23/2024 2:46 PM CDT Oxygen Saturation 98% 12/23/2024 2:46 PM CDT Inhaled Oxygen Concentration - - Weight 99.6 kg (219 lb 9.6 oz) 12/23/2024 2:46 P M CDT Height 165.1 cm (5' 5) 12/23/2024 2:46 PM CDT Body Mass Index 36.54 12/23/2024 2:46 PM CDT Plan of Treatment Health Maintenance Due Date Last Done Comments Hepatitis C Screening 1965 Foot Exam 1963 DTaP/Tdap/Td Vaccine (1 - Tdap) 1974 Hepatitis B Screening 1981 Regular Well Visit/Exam 18-64 1981 Pneumococcal vaccine <65 (1 of 2 - PCV) 1982 Zoster Vaccine (1 of 2) 2013 Covid-19 Vaccine (4 - 2023-2 5 season) 2024 05/05/2021, 08/22/2020, 08/01/2020 Depression Screening 01/27/2025 01/28/2024, 01/17/2023, 06/14/2022, Additional history exists Hemoglobin A1C 01/28/2025 07/30/2024, 01/10, 07/24/2023, Additional history exists Dilated Eye Exam 02/09/2025 02/10/2024, 07/2021, 09/21/2020 Breast Cancer Screening-Mammogram 05/23/2025 05/23/2024, 01/19/2023, 01/11/2022, Additional history exists Albumin Creatinine Ratio, Urine 07/30/2025 07/30/2024, 07/24/2023, 06/14/2022 Lipid Panel 07/30/2025 07/30/2024, 01/10, 07/24/2023, Additional history exists eGFR 07/30/2025 07/30/2024, 01/10, 07/24/2023, Additional history exists Colon Cancer Screening-Colonoscopy 01/25/2031 01/25/2021 Colon Cancer Screening-CT Colonography Discontinued 01/25/2021 Colon Cancer Screening-DNA Stool Discontinued 01/26/20 Colon Cancer Screening-FIT Discontinued 01/25/2021 Colon Cancer Screening-Sigmoidoscopy Discontinued 01/25/2021 Influenza Vaccine Completed 05/22/2024, , 05/05/2021, Additional history exists Procedures Procedure Name Priority Date/Time Associated Diagnosis Comments EGFR Routine 07/30/2024 6:16 AM DIE CASTER Type 2 diabetes mellitus without complication, without long-term current use of insulin (HCC) Pure hypercholesterole constance Primary hypertension Vitamin D deficiency Metabolic syndrome HEMOGLOBIN A1C Routine 07/30/2024 6:16 AM DIE CASTER Type 2 diabetes mellitus without complication, without long-term current use of insulin (HCC) Pure hypercholesterole constance Primary hypertension Vitamin D deficiency Metabolic syndrome LIPID PANEL Routine 07/30/2024 6:16 AM DIE CASTER Type 2 diabetes mellitus without complication, without long-term current use of insulin (HCC) Pure hypercholesterole constance Primary hypertension Vitamin D deficiency Metabolic syndrome ALBUMIN CREATININE RATIO, URINE Routine 07/30/2024 6:13 AM DIE CASTER Type 2 diabetes mellitus without complication, without [...] Maintenance Results * eGFR (07/30/2024 6:16 AM DIE CASTER) eGFR >90 >=60 mL/min/1. 73 m2 Comment: [...] of Race in Diagnosing Kidney Disease, JASN 2020). The CKD-EPI equation should not be used for patients with unstable renal function and has not been validated in children and those over 70. Current interpretive data was last reviewed 2021. Blood 07/30/2024 6:16 AM DIE CASTER 07/30/2024 7:07 AM DIE CASTER Result [facility] Fabiola Dickson MD LAB BLOOD ORDERABLES Susan l Result Performing Organization Address [facility] de Phone Number [address] [address] * Hemoglobin A1c (07/30/2024 6:16 AM DIE CASTER) Hgb A1C 5.5 4.0 - 5.6 % Estimated Average Glucose 111 mg/dL [facility] Comment: The ADA recommends reporting an estimated Average Glucose (eAG) with all Hemoglobin A1c results using the equation derived from a study of 507 normal and diabetic adults. Minority populations were underrepresented and children were not included. (Diabetes Care 31:5072-5769, 2008). The eAG is not equivalent to a fasting glucose. Blood 07/30/2024 6:16 AM DIE CASTER 07/30/2024 7:07 AM DIE CASTER Fabiola Dickson MD LAB BLOOD ORDERABLES Susan l Result Performing Organization Address [facility] de Phone Number [address] [address] * Lipid panel (07/30/2024 6:16 AM DIE CASTER) Cholesterol 163 30 - 199 mg/dL Comment: [...] 2. NCEP Expert Panel. Circulation 2004;110:227 3. Carrillo M et al. SANTANA Cardiol. 2019December 10;5(5):540-548. doi: 10.1001/[email or web address].2020.0013 Current Interpretive Data was last revised on 2024. Non-HDL Cholesterol 99 mg/dL LAKISHA Comment: Interpretive Data Ages < [...] revised on 2018. Chol/HDL ratio 3 [facility]HA Blood 07/30/2024 6:16 AM DIE CASTER 07/30/2024 7:07 AM DIE CASTER Fabiola Dickson MD LAB BLOOD ORDERABLES Susan l Result Performing Organization Address [facility] Co de Phone Number [address] [email or web address] [address] * Albumin Creatinine Ratio, Urine (07/30/2024 6:13 AM DIE CASTER) Albumin Ur 25.1 mg/L Comment: Interpretive Data No reference range established. Current interpretive data was last revised 2018. Creatinine Ur 182.0 mg/dL [facility]ISHA Comment: Interpretive Data No reference range established. Current interpretive data was last revised 2018. Albumin Creatinine Ratio, Ur 14 1 - 29 mg/g [facility]HA Urine 07/30/2024 6:13 AM DIE CASTER 07/30/2024 7:08 AM DIE CASTER Fabiola Dickson MD LAB URINE ORDERABLES Susan l Result Performing Organization Address [facility] Co de Phone Number [address] [employer] ([employer] [place] [address] * Screening Mammogram Bilateral W Carter (05/23/2024 [...] age 40, based on guidelines of the [employer] (ACR Practice Parameter for the Performance of Screening and Diagnostic Mammography) and [employer]. For women [...] suspicious finding in either breast on mammogram. 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
== END 2025-01-12 12:44 | disposition home or self-care (01) ==
DX: R22.32 Localized swelling, mass and lump, left upper limb (principal)
CPT/HCPCS: 76642; 77061; 77065; G0279